=== PATIENT | male | born 1950 | race Two or more races ===

== ENCOUNTER 2018-09-06 15:47 | Inpatient (IN) | payer OTHER, MEDICARE ==
[~2018-09-06] VITALS: Ht 177.8 cm; Wt 112.5 kg
[2018-09-06] MEDS ORDERED: SODIUM CHLORIDE 0.9% 1000ML 1,000 ML IV STA ×2 (16:09→17:53)
[2018-09-06] MEDS ORDERED: VANCOMYCIN 1GM/NS 250 ML 250 ML IV ONE (16:15)
[2018-09-06] MEDS ORDERED: PIPER-TAZ 3.375 GM 50 ML IV ONE (16:15)
[2018-09-06 17:00] LABS: BASOPHILS # (AUTO) 0.1 (0.0-0.1); BASOPHILS % 0.4 % (0.0-1.0); EOSINOPHILS # (AUTO) 0.1 (0.0-0.4); EOSINOPHILS % 0.9 % (0.0-6.0); HEMOGLOBIN 11.6 g/dL (14.0-18.0); LYMPHOCYTES # (AUTO) 1.6 (1.0-3.2); LYMPHOCYTES % 11.3 % (18.0-39.1); MEAN CORPUSCULAR HEMOGLOBIN 30.4 pg (28-32); MEAN CORPUSCULAR HGB CONC 34.1 g/dL (31-35); MONOCYTES % 7.2 % (4.4-11.3); NEUTROPHILS # (AUTO) 11.1 (2.1-6.9); NEUTROPHILS % 79.4 % (38.7-80.0); PLATELET COUNT 237 x10e3/uL (140-360); RED BLOOD COUNT 3.82 x10e6/uL (4.3-5.7); RED CELL DISTRIBUTION WIDTH 11.9 % (11.7-14.4)
[2018-09-06 17:13] LABS: INR 1.02; PROTHROMBIN TIME 14.3 seconds (11.9-14.5)
[2018-09-06 17:14] LABS: PARTIAL THROMBOPLASTIN TIME 34.9 seconds (23.8-35.5)
[2018-09-06 17:18] LABS: BILIRUBIN,URINE NEGATIVE (NEGATIVE); CLARITY,URINE SL CLOUDY (CLEAR); COLOR,URINE YELLOW (YELLOW); KETONES,URINE NEGATIVE (NEGATIVE); LEUKOCYTE ESTERASE ,URINE NEGATIVE (NEGATIVE); NITRITE,URINE NEGATIVE (NEGATIVE); PROTEIN,URINE DIPSTICK NEGATIVE (NEGATIVE); URINE UROBILINOGEN 0.2 mg/dL (0.2 - 1)
[2018-09-06 17:22] LABS: BACTERIA,URINE MODERATE /HPF; EPITHELIAL CELLS,URINE FEW /LPF; RBC,URINE 0-5 /HPF (0-5)
[2018-09-06 17:23] LABS: ALANINE AMINOTRANSFERASE 22 IU/L (0-55); ALBUMIN 2.7 g/dL (3.5-5.0); ALBUMIN/GLOBULIN RATIO 0.5 (0.8-2.0); ALKALINE PHOSPHATASE 68 IU/L (40-150); BLOOD UREA NITROGEN 36 mg/dL (7-26); BUN/CREATININE RATIO 26 (6-25); CALCIUM 9.8 mg/dL (8.4-10.2); CARBON DIOXIDE 20 mmol/L (22-29); CHLORIDE 95 mmol/L (98-107); CREATINE KINASE 85 IU/L (30-200); CREATININE, SERUM 1.41 mg/dL (0.72-1.25); EST GLOMERULAR FILTRATION RATE 50 ML/MIN (60-); MAGNESIUM 2.3 MG/DL (1.3-2.1); SODIUM 128 mmol/L (136-145)
[2018-09-06 17:30] LABS: GLUCOSE 502 mg/dL (74-118)
--- NOTE | 2018-09-06 17:41 | Diagnostic Imaging Report ---
EXAM: FOOT RIGHT COMPLETE, AP, lateral and oblique INDICATION: Right foot cellulitis COMPARISON: None FINDINGS: BONES: No acute fractures. No erosions. JOINTS: No malalignment. SOFT TISSUES: Soft tissue swelling of the foot, predominantly the first digit with subcutaneous emphysema. Regional vascular calcifications. IMPRESSION: Soft tissue swelling and subcutaneous emphysema of the first digit consistent with infection. No radiographic evidence of osteomyelitis. MRI is more sensitive to detect osteomyelitis. Signed by: Dr. Didi John M.D. on 09/06/2018 5:37 PM
--- NOTE | 2018-09-06 17:49 | Diagnostic Imaging Report ---
EXAM: CHEST SINGLE (PORTABLE), AP 1 view INDICATION: Right foot infection COMPARISON: None FINDINGS: LINES/TUBES: None LUNGS: No consolidations or edema. PLEURA: No effusions or pneumothorax. HEART AND MEDIASTINUM: Normal size and contour. BONES AND SOFT TISSUES: No acute findings. IMPRESSION: No acute thoracic abnormality. Signed by: Dr. Didi John M.D. on 09/06/2018 5:45 PM
[2018-09-06] MEDS ORDERED: INSULIN REGULAR, HUMAN 100 UNIT/1 ML 3ML VIAL IV ONE (18:00)
[2018-09-06] MEDS: VANCOMYCIN 750MG/NS 150ML IVPB 150 ML IV SCH (19:00)
[2018-09-06] MEDS ORDERED: MORPHINE SULFATE 2 MG/ML SYR IV PRN (19:00)
[2018-09-06] MEDS ORDERED: DEXTROSE 50% SYRINGE 50 ML IV PRN (19:00)
[2018-09-06] MEDS ORDERED: ONDANSETRON HCL INJ 2 MG/ML VIAL IV PRN (19:00)
--- OUTSIDE RECORDS SUMMARY | 2018-09-06 20:09 | XMS REPORT ---
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 Allergies, Adverse Reactions, Alerts This patient has no known allergies or adverse reactions. Medications This patient has no known medications. Results Test Description Test Time Test Comments Text Results Atomic Results Result Comments CHEST SINGLE (PORTABLE) 2018-09-06 17:41:00 [place] [address] Patient Name: BENITO MEJIA MR #: [id number] : 1950 Age/Sex: 68/M Req #: [id number] Adm Physician: Ordered by: JOSE ALFREDO GUERRA MD Report #: [id number] Location: ER Room/Bed: Procedure: [id number] DX/CHEST SINGLE (PORTABLE) Exam Date: 09/06/18 Exam Time: 1714 REPORT STATUS: Signed EXAM: CHEST SINGLE (PORTABLE), AP 1 view INDICATION: Right foot infection COMPARISON: None FINDINGS: LINES/TUBES: None LUNGS: No consolidations or edema. PLEURA: No effusions or pneumothorax. HEART AND MEDIASTINUM: Normal size and contour. BONES AND SOFT TISSUES: No acute findings. IMPRESSION: No acute thoracic abnormality. Signed by: Dr. Osvaldo Carmona M.D. on 09/06/2018 5:45 PM Dictated By: OSVALDO CARMONA MD 44 Transcribed By: ARVIND on 09/06/181744 COPY TO: JOSE ALFREDO GUERRA MD FOOT RIGHT COMPLETE 2018-09-06 17:35:00 [facility] [address] [address] Patient Name: BENITO MEJIA MR #: [id number] : 1950 Age/Sex: 68/M Req #: [id number] Adm Physician: Ordered by: JOSE ALFREDO GUERRA MD Report #: [id number] Location: ER Room/Bed: Procedure: [id number] DX/FOOT RIGHT COMPLETE Exam Date: 09/06/18 Exam Time: 1713 REPORT STATUS: Signed EXAM: FOOT RIGHT COMPLETE, AP, lateral and oblique INDICATION: Right foot cellulitis COMPARISON: None FINDINGS: BONES: No acute fractures. No erosions. JOINTS: No malalignment. SOFT TISSUES: Soft tissue swelling of the foot, predominantly the first digit with subcutaneous emphysema. Regional vascular calcifications. IMPRESSION: Soft tissue swelling and subcutaneous emphysema of the first digit consistent with infection. No radiographic evidence of osteomyelitis. MRI is more sensitive to detect osteomyelitis. Signed by: Dr. Osvaldo Carmona M.D. on 09/06/2018 5:37 PM Dictated By: OSVALDO CARMONA MD 36 Transcribed By: ARVIND on 09/06/181736 COPY TO: JOSE ALFREDO GUERRA MD
[2018-09-06] MEDS ORDERED: INSULIN REGULAR, HUMAN 100 UNIT/1 ML 3ML VIAL SQ ONE (20:15)
[2018-09-06] MEDS: INSULIN LISPRO 100 UNIT/1 ML 3ML VIAL SQ SCH (21:00)
[2018-09-06 21:20] VITALS: BP 157/88
[2018-09-06 21:49] VITALS: BP 157/70
[2018-09-07] VITALS (9 sets, daily range): BP systolic 136–160; BP diastolic 63–82
[2018-09-07] MEDS: SODIUM CHLORIDE 0.9% 1000ML 1,000 ML IV SCH ×2 (03:30→08:55)
[2018-09-07 05:37] LABS: BASOPHILS % 0.3 % (0.0-1.0); EOSINOPHILS # (AUTO) 0.2 (0.0-0.4); EOSINOPHILS % 1.5 % (0.0-6.0); HEMATOCRIT 30.5 % (38.2-49.6); HEMOGLOBIN 10.4 g/dL (14.0-18.0); LYMPHOCYTES # (AUTO) 1.7 (1.0-3.2); LYMPHOCYTES % 14.3 % (18.0-39.1); MEAN CORPUSCULAR HEMOGLOBIN 30.9 pg (28-32); MEAN CORPUSCULAR HGB CONC 34.1 g/dL (31-35); MEAN CORPUSCULAR VOLUME 90.5 fL (81-99); MONOCYTES % 8.3 % (4.4-11.3); NEUTROPHILS # (AUTO) 8.7 (2.1-6.9); NEUTROPHILS % 74.9 % (38.7-80.0); PLATELET COUNT 266 x10e3/uL (140-360); RED BLOOD COUNT 3.37 x10e6/uL (4.3-5.7)
[2018-09-07 05:59] LABS: ALANINE AMINOTRANSFERASE 17 IU/L (0-55); ALBUMIN 2.3 g/dL (3.5-5.0); ALBUMIN/GLOBULIN RATIO 0.5 (0.8-2.0); ALKALINE PHOSPHATASE 56 IU/L (40-150); ANION GAP 15.4 mmol/L (8-16); BLOOD UREA NITROGEN 26 mg/dL (7-26); BUN/CREATININE RATIO 23 (6-25); CALCIUM 9.2 mg/dL (8.4-10.2); CARBON DIOXIDE 20 mmol/L (22-29); CHLORIDE 104 mmol/L (98-107); CREATINE KINASE 50 IU/L (30-200); CREATININE, SERUM 1.15 mg/dL (0.72-1.25); EST GLOMERULAR FILTRATION RATE > 60 ML/MIN (60-); GLUCOSE 302 mg/dL (74-118); POTASSIUM 4.4 mmol/L (3.5-5.1); SODIUM 135 mmol/L (136-145)
[2018-09-07] MEDS: PIPER-TAZ 3.375 GM 50 ML IV SCH ×4 (06:00→18:00)
[2018-09-07 07:32] LABS: LYMPHOCYTES % (MANUAL) 15 % (19-48); MONOCYTES % (MANUAL) 6 % (3.4-9.0); NEUTROPHILS % (MANUAL) 77 % (40-74); PLATELET ESTIMATE ADEQUATE; PLATELET MORPHOLOGY COMMENT NORMAL; RBC MORPHOLOGY COMMENT NORMAL
[2018-09-07] MEDS: INSULIN LISPRO 100 UNIT/1 ML 3ML VIAL SQ SCH ×4 (08:10→21:00)
[2018-09-07] MEDS: VANCOMYCIN 750MG/NS 150ML IVPB 150 ML IV SCH ×2 (08:55→19:00)
[2018-09-07] MEDS ORDERED: DIOVAN160 MG PO (12:02)
[2018-09-07] MEDS ORDERED: METFORMIN HCL500 MG PO (12:02)
[2018-09-07] MEDS ORDERED: AMLODIPINE BESY10 MG PO (12:02)
[2018-09-07] MEDS ORDERED: JANUVIA100 MG PO (12:02)
[2018-09-07] MEDS ORDERED: METOPROLOL SUCC50 MG PO (12:02)
[2018-09-07 13:34] LABS: CREATINE KINASE 50 IU/L (30-200)
[2018-09-07] MEDS: METOPROLOL SUCCINATE 50 MG TAB XL PO SCH (15:25)
[2018-09-07] MEDS: VALSARTAN 160 MG TAB PO SCH (15:25)
[2018-09-07] MEDS: ENOXAPARIN SOD INJ 40 MG/0.4 ML SYR SC SCH (16:38)
[2018-09-07] MEDS: INSULIN DETEMIR 100 UNIT/ML PEN SQ SCH (16:47)
--- NOTE | 2018-09-07 18:20 | Consultation ---
DATE OF CONSULTATION: REASON FOR CONSULTATION: Infection of his foot. HISTORY OF PRESENT ILLNESS: This patient who is a very pleasant 68-year-old gentleman with history of obesity, history of diabetes mellitus, history of hypertension. While in the shower, he hit his foot few days ago, but he noticed this was getting progressively worse. There is redness and swelling. The big toe is gangrenous. The patient has noticed there was bad odor to the foot, so he came to the emergency room where he was admitted. The patient told me that when he hit his right foot, he was in the shower and there was water. PAST MEDICAL HISTORY: Hypertension, diabetes mellitus, and obesity. PAST SURGICAL HISTORY: Denies. ALLERGIES: NKA. SOCIAL HISTORY: There is no smoking, drug abuse, or alcohol abuse. FAMILY HISTORY: Hypertension and diabetes. REVIEW OF SYSTEMS HEENT: There is no headache, visual changes, or hearing changes. GI: There is no nausea, no vomiting, no diarrhea. CARDIAC: There is no arrhythmia or chest pain. NEURO: No seizure activity or local weakness, but he does have tingling sensation on both feet. He does not have good sensation. PHYSICAL EXAMINATION GENERAL: Currently alert, oriented. Does not seem to be in acute distress. VITALS: Stable, currently afebrile. HEENT: He does not appear icteric. NECK: Supple. CHEST: Clear. HEART: S1 and S2. No murmur. ABDOMEN: Soft, obese. EXTREMITIES: The right foot, there is erythema, there is edema, and there is gangrene changes of the big toe. I could not feel the pulse distally. An x-ray showed soft tissue swelling and subcutaneous emphysema of the 1st digit consistent with infection. IMPRESSION 1. Gangrene of the 1st toe. 2. Osteomyelitis. 3. Diabetes. 4. Obesity. 5. Hypertension. 6. Chronic kidney disease. We will put the patient on vancomycin 1 gram q.12, Zosyn 325 q.6. Obtain sed rate, C-reactive protein. Patient will need vascular workup probably end up with amputation of his toe. This was discussed with the patient who will follow with you. Job#: [id number] VAS
--- NOTE | 2018-09-07 18:40 | Consultation ---
DATE OF CONSULTATION: September 07, 2018 CARDIOLOGY CONSULTATION REFERRING PHYSICIAN: Dr. Abhishek Barton. REASON FOR CONSULTATION: Foot gangrene. HISTORY OF PRESENT ILLNESS: Mr. Lara is a 68-year-old man with history of diabetes mellitus, hypertension, dyslipidemia, morbid obesity, who presents to [facility] via the emergency department with complaint of worsening pain, falls now, and discoloration of wound to the right toe. He sustained a trauma to the foot over the last week and the last 3 days hit his foot again after which he noticed erythema, pain, discoloration, and skin sloughing significantly increased. He also described subjective fevers. He denies any chest pain or shortness of breath. He denies any prior known coronary or vascular problems. Antibiotics were initiated in the emergency department. We have been asked to evaluate from a cardiovascular standpoint. REVIEW OF SYSTEMS: A 12-system review negative except for as noted above. ALLERGIES: NO KNOWN DRUG ALLERGIES. PAST MEDICAL HISTORY: Significant for hypertension, diabetes mellitus, dyslipidemia. SOCIAL HISTORY: Denies smoking, alcohol, or drugs. FAMILY HISTORY: Noncontributory. PHYSICAL EXAMINATION VITAL SIGNS: Temperature 98.3, heart rate 84, respiratory rate 20, blood pressure 160/76, O2 sat 97% on room air. GENERAL: No acute distress. Alert. NECK: No JVD. CHEST: Clear to auscultation. CARDIOVASCULAR: Regular rate and rhythm. Normal S1 and S2. No S3 or S4. Systolic ejection murmur 1/6. ABDOMEN: Soft, nontender. EXTREMITIES: Edema, 1+ to the left lower extremity, 2+ to the right lower extremity with erythema in the forefoot to the right and gangrenous changes to first toe with loss of skin integrity. Decreased pulses bilaterally pedal and dorsalis pedis. CARDIOVASCULAR MEDICATIONS: Reviewed. Zosyn and vancomycin antibiotics, valsartan 320 mg daily, Lovenox 40 mg subcutaneous daily, amlodipine 10 mg daily, metoprolol succinate 50 mg daily. STUDIES: White blood cells 11.6, down from 14, hemoglobin 10.4, platelets 266. INR 1. Sodium 135, potassium 4.4, chloride 104, bicarbonate 20, BUN 26, creatinine 1.15, glucose 302. Total bilirubin 0.3, AST is 14, ALT is 17, lactic acid is 13.5 within normal reference range. Troponin I negative x3. Albumin 2.3. Right foot x-ray; soft tissue swelling and subcutaneous emphysema in the first digit consistent with infection. No radiographic evidence of osteomyelitis. Chest x-ray; no acute thoracic abnormality. ASSESSMENT 1. Right foot gangrene and cellulitis with emphysematous changes noted on x-ray and on exam. 2. Suspected peripheral artery disease, underlying. 3. Diabetes mellitus. 4. Hypertension. 5. Dyslipidemia. 6. Obesity. RECOMMENDATIONS 1. Agree with IV antibiotics. 2. We will need source control and debridement expedited. Podiatry has been consulted. Defer to podiatry's expertise. 3. Obtain arterial Doppler ultrasound. 4. We will have threshold for proceeding with angiography during this admission depending on patient's progression. 5. Continue current cardiovascular medications including perioperative beta blockers. 6. Obtain echocardiogram. Job#: [id number] SHERRY
[2018-09-08] VITALS (8 sets, daily range): BP systolic 120–159; BP diastolic 59–81
[2018-09-08] MEDS: PIPER-TAZ 3.375 GM 50 ML IV SCH ×4 (06:00→18:04)
[2018-09-08 07:17] LABS: BASOPHILS # (AUTO) 0.1 (0.0-0.1); BASOPHILS % 0.6 % (0.0-1.0); EOSINOPHILS # (AUTO) 0.2 (0.0-0.4); EOSINOPHILS % 1.8 % (0.0-6.0); HEMATOCRIT 32.6 % (38.2-49.6); HEMOGLOBIN 10.9 g/dL (14.0-18.0); LYMPHOCYTES # (AUTO) 1.8 (1.0-3.2); LYMPHOCYTES % 16.2 % (18.0-39.1); MEAN CORPUSCULAR HEMOGLOBIN 30.6 pg (28-32); MEAN CORPUSCULAR HGB CONC 33.4 g/dL (31-35); MEAN CORPUSCULAR VOLUME 91.6 fL (81-99); MONOCYTES # (AUTO) 0.7 (0.2-0.8); MONOCYTES % 6.5 % (4.4-11.3); NEUTROPHILS # (AUTO) 8.3 (2.1-6.9); NEUTROPHILS % 73.9 % (38.7-80.0); PLATELET COUNT 290 x10e3/uL (140-360); RED BLOOD COUNT 3.56 x10e6/uL (4.3-5.7); RED CELL DISTRIBUTION WIDTH 12.4 % (11.7-14.4)
[2018-09-08 07:31] LABS: ANION GAP 15.9 mmol/L (8-16); BLOOD UREA NITROGEN 15 mg/dL (7-26); BUN/CREATININE RATIO 14 (6-25); CALCIUM 9.4 mg/dL (8.4-10.2); CARBON DIOXIDE 21 mmol/L (22-29); CHLORIDE 103 mmol/L (98-107); CREATININE, SERUM 1.05 mg/dL (0.72-1.25); EST GLOMERULAR FILTRATION RATE > 60 ML/MIN (60-); GLUCOSE 280 mg/dL (74-118); POTASSIUM 4.9 mmol/L (3.5-5.1); SODIUM 135 mmol/L (136-145)
[2018-09-08 07:34] LABS: CHOL/HDL RATIO 4.7 (3.9-4.7)
[2018-09-08 07:54] LABS: THYROID STIMULATING HORMONE 1.682 uIU/mL (0.350-4.940)
[2018-09-08] MEDS: INSULIN DETEMIR 100 UNIT/ML PEN SQ SCH ×2 (08:41→18:04)
[2018-09-08] MEDS: INSULIN LISPRO 100 UNIT/1 ML 3ML VIAL SQ SCH ×4 (08:41→21:00)
[2018-09-08] MEDS: VANCOMYCIN 750MG/NS 150ML IVPB 150 ML IV SCH ×2 (08:42→19:45)
[2018-09-08] MEDS: AMLODIPINE BESYLATE 10 MG TAB PO SCH (08:42)
[2018-09-08] MEDS: METOPROLOL SUCCINATE 50 MG TAB XL PO SCH (08:42)
[2018-09-08] MEDS: VALSARTAN 160 MG TAB PO SCH (08:42)
[2018-09-08 11:41] LABS: BAND NEUTROPHILS % (MANUAL) 2 %; EOSINOPHILS % (MANUAL) 1 % (0-7); LYMPHOCYTES % (MANUAL) 20 % (19-48); MONOCYTES % (MANUAL) 2 % (3.4-9.0); NEUTROPHILS % (MANUAL) 75 % (40-74)
[2018-09-08 11:42] LABS: PLATELET ESTIMATE ADEQUATE; PLATELET MORPHOLOGY COMMENT NORMAL; RBC MORPHOLOGY COMMENT NORMAL
[2018-09-08] MEDS ORDERED: FUROSEMIDE INJ 10 MG/ML 4 ML VIAL IV ONE (13:30)
[2018-09-08] MEDS ORDERED: POTASSIUM CHLORIDE 10MEQ EA PO ONE (13:30)
--- NOTE | 2018-09-08 17:34 | Progress Note ---
DATE: September 08, 2018 CARDIOLOGY PROGRESS NOTE SUBJECTIVE: Describes foot discomfort, erythema, and gangrenous changes, stable compared to yesterday. OBJECTIVE VITAL SIGNS: Temperature 97.7, heart rate 75, respiratory rate 20, blood pressure 128/70, O2 sat 97% on room air. GENERAL: In no acute distress, alert. NECK: No JVD. CHEST: Clear to auscultation. CARDIOVASCULAR: Regular rate and rhythm. Normal S1 and S2. No S3 or S4. ABDOMEN: Soft, nontender. EXTREMITIES: Right lower extremity, 2+ edema. Left lower extremity, trace edema. Right foot first toe gangrenous, with erythema in the distal most segment of the forefoot. Decreased pulses, however, warm extremities distally. CARDIOVASCULAR MEDICATIONS: Reviewed. On Zosyn, vancomycin, valsartan 320 mg daily, amlodipine 10 mg daily, metoprolol succinate 50 mg daily, Lovenox 40 mg subcu daily. STUDIES: White blood cells 11.2, hemoglobin 10.9, platelets 290, sodium 135, potassium 4.9, chloride 103, bicarbonate 21, BUN 15, creatinine 1.05, glucose 280, calcium 9.1, hemoglobin A1c was 10.9 and elevated, LDL was 83, HDL 27, triglycerides 92, total cholesterol 128, TSH 1.6. ASSESSMENT 1. Gangrene of first toe with associated osteomyelitis and cellulitis. Given air on x-ray concerning for anaerobic infection, infectious disease on board. 2. Uncontrolled diabetes. 3. Hypertension. 4. Dyslipidemia. 5. Obesity. 6. Chronic kidney disease. 7. Peripheral arterial disease, suspected by Doppler. RECOMMENDATIONS 1. Antibiotics per ID. 2. Source control per podiatry. Plan for MRI and possible surgery soon. 3. Arterial Doppler reviewed, concerning for right popliteal and [id number] vessel multilevel peripheral arterial disease. I have discussed alternatives, indications, risk, and benefits from angiography and possible endovascular intervention with patient. He was agreeable to this procedure. We will plan on this following his foot surgery by podiatry. We will coordinate care with other treating physicians. 4. Continue perioperative beta blockers. 5. Preserved left ventricular systolic function noted on echocardiogram. Job#: [id number] LPA
[2018-09-08] MEDS: SODIUM CHLORIDE 0.9% 1000ML 1,000 ML IV SCH (18:03)
[2018-09-08] MEDS: ASPIRIN 81 MG CHEW TAB PO SCH (18:03)
[2018-09-08] MEDS: ENOXAPARIN SOD INJ 40 MG/0.4 ML SYR SC SCH (18:04)
[2018-09-08] MEDS: TAMSULOSIN HCL 0.4 MG CAP PO SCH (21:00)
[2018-09-08] MEDS: ATORVASTATIN 40 MG TAB PO SCH (21:00)
[2018-09-09] VITALS (9 sets, daily range): BP systolic 138–161; BP diastolic 70–89
[2018-09-09] MEDS: SODIUM CHLORIDE 0.9% 1000ML 1,000 ML IV SCH ×3 (00:34→20:16)
--- NOTE | 2018-09-09 05:08 | Consultation ---
DATE OF CONSULTATION: September 08, [address] Abraham Peace. REASON FOR CONSULTATION: Gangrene and abscess of the right foot. 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 He came to the emergency room because he says he hit his toe about 4 days ago. Once he hit his toe, he noticed that he started developing a wound. He came into the ER because all of a sudden his foot was red hot and swollen. He is a diabetic who manages his diabetes with glipizide, metformin and now he has begun on Lantus. He says he sees a doctor in the [facility]. He does not recall his name, but he says he is compliant, but he does need to improve on the hemoglobin A1c. He does not remember what the number is. PAST MEDICAL HISTORY: Diabetes mellitus, hypertension, PVD. ALLERGIES: NO KNOWN DRUG ALLERGIES. 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 He denies any alcohol, tobacco or illicit drug use. He lives at home with his . He has children, grandchildren and great grandchildren. REVIEW OF SYSTEMS: Noncontributory except for abscess to the right foot. LOWER EXTREMITY PHYSICAL EXAMINATION: Pedal pulses are palpable. Capillary filling time is delayed. There is +2 erythema to the lower extremity that extends to about the mid foot. There is malodor. There is some ulcer down to the bone to the right hallux. There are white gangrenous changes. Skin is thin, shiny and atrophic. Intrinsic minus type of foot. There is no pedal hair growth noted. Protective threshold is absent. LABORATORY DATA: His white blood cell count right now is trending down from 14 when he came in on September 06 here down to 11.23. His hemoglobin is 10.9, hematocrit 32.6. His neutrophils are 73.9. They are also trending down along with monocytes. His blood culture is negative for 24 hours. The x-ray still show for some changes of an abscess to the right lower extremity. He has pending a stat MRI. His urine cultures were negative. ASSESSMENT 1. Ulcer grade 3, left. 2. 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 3. Abscess osteomyelitis, right. PLAN: At this point, I discussed with the patient that he is going to need a debridement in the OR. He is aware of the possibility that he is going to lose the 1st ray. At this point, he is going to do Betadine, wet to dry. I ordered a stat MRI. Dr. Peace will follow for surgical debridement and continued care of this patient. I discussed with him the need for compliance for continued diabetic compliance with his blood sugars. I have answered all questions. We will continue to follow. Thank you for letting us participate in the care of this patient. Job#: [id number] GE
[2018-09-09] MEDS: PIPER-TAZ 3.375 GM 50 ML IV SCH ×4 (05:25→18:00)
[2018-09-09 05:43] LABS: BASOPHILS # (AUTO) 0.1 (0.0-0.1); BASOPHILS % 0.7 % (0.0-1.0); EOSINOPHILS # (AUTO) 0.3 (0.0-0.4); EOSINOPHILS % 2.7 % (0.0-6.0); HEMATOCRIT 31.8 % (38.2-49.6); HEMOGLOBIN 10.6 g/dL (14.0-18.0); LYMPHOCYTES # (AUTO) 2.1 (1.0-3.2); LYMPHOCYTES % 21.3 % (18.0-39.1); MEAN CORPUSCULAR HEMOGLOBIN 30.4 pg (28-32); MEAN CORPUSCULAR HGB CONC 33.3 g/dL (31-35); MEAN CORPUSCULAR VOLUME 91.1 fL (81-99); MONOCYTES # (AUTO) 0.7 (0.2-0.8); MONOCYTES % 6.7 % (4.4-11.3); NEUTROPHILS # (AUTO) 6.7 (2.1-6.9); NEUTROPHILS % 67.8 % (38.7-80.0); PLATELET COUNT 310 x10e3/uL (140-360); RED BLOOD COUNT 3.49 x10e6/uL (4.3-5.7); RED CELL DISTRIBUTION WIDTH 12.3 % (11.7-14.4)
[2018-09-09 05:56] LABS: ANION GAP 13.1 mmol/L (8-16); BLOOD UREA NITROGEN 12 mg/dL (7-26); BUN/CREATININE RATIO 13 (6-25); CALCIUM 9.4 mg/dL (8.4-10.2); CARBON DIOXIDE 24 mmol/L (22-29); CHLORIDE 104 mmol/L (98-107); CREATININE, SERUM 0.93 mg/dL (0.72-1.25); EST GLOMERULAR FILTRATION RATE > 60 ML/MIN (60-); GLUCOSE 188 mg/dL (74-118); POTASSIUM 4.1 mmol/L (3.5-5.1); SODIUM 137 mmol/L (136-145)
[2018-09-09] MEDS: VANCOMYCIN 750MG/NS 150ML IVPB 150 ML IV SCH ×2 (06:19→18:41)
[2018-09-09] MEDS: INSULIN LISPRO 100 UNIT/1 ML 3ML VIAL SQ SCH ×4 (07:30→20:17)
[2018-09-09] MEDS: INSULIN DETEMIR 100 UNIT/ML PEN SQ SCH ×2 (07:30→18:00)
[2018-09-09 09:04] LABS: PLATELET ESTIMATE ADEQUATE; PLATELET MORPHOLOGY COMMENT NORMAL; RBC MORPHOLOGY COMMENT NORMAL
[2018-09-09] MEDS: VALSARTAN 160 MG TAB PO SCH (10:52)
[2018-09-09] MEDS: ASPIRIN 81 MG CHEW TAB PO SCH (10:52)
[2018-09-09] MEDS: METOPROLOL SUCCINATE 50 MG TAB XL PO SCH (10:53)
[2018-09-09] MEDS: AMLODIPINE BESYLATE 10 MG TAB PO SCH (10:53)
--- NOTE | 2018-09-09 10:57 | Diagnostic Imaging Report ---
TECHNIQUE: Magnetic resonance imaging of the RIGHT foot (forefoot) was performed WITHOUT injected contrast. HISTORY: Infection, abscess, osteomyelitis, ulcer COMPARISON: Right foot radiographs September 06, 2018. DISCUSSION: Bone: Heterogeneous signal throughout the majority of the first proximal and distal phalanges, with innumerable small foci of signal void. Paucity of associated edema. Joints: Mild scattered degenerative changes, most notably the first metatarsophalangeal joint. Fluid within the visualized joints is within physiologic limits. Soft Tissues: Mild edema of the great toe with innumerable small foci of signal void. Moderate superficial dorsal soft tissue edema of the visualized foot. IMPRESSION: 1. Innumerable air foci throughout the soft tissues and bones of the great toe with a relative paucity of associated edema, consider gangrene. 2. No soft tissue abscess. Signed by: Dr. Maco Damon D.O., M.M.M. on 09/09/2018 10:54 AM
--- NOTE | 2018-09-09 12:35 | Progress Note ---
DATE: September 09, 2018 CARDIOLOGY PROGRESS NOTE SUBJECTIVE: No complaints today other than foot discomfort. OBJECTIVE VITAL SIGNS: Temperature 97.5, heart rate 70, respiratory rate 20, blood pressure 144/70, O2 sat 99%. GENERAL: In no acute distress. Alert. NECK: No JVD. CHEST: Clear to auscultation. CARDIOVASCULAR: Regular rate and rhythm. Normal S1 and S2. No S3 or S4. ABDOMEN: Soft. EXTREMITIES: 2+ edema to right lower extremity and trace edema to left lower extremity. Right 1st toe gangrene and improving erythema surrounding the forefoot. Decreased pulses. Warm distal extremities. CARDIOVASCULAR MEDICATIONS: Reviewed. 1. Enoxaparin 40 mg daily. 2. Amlodipine 10 mg daily. 3. Valsartan 320 mg daily. 4. Tamsulosin 0.4 mg nightly. 5. Metoprolol succinate 50 mg daily. 6. Aspirin 81 mg daily. 7. Atorvastatin 40 mg nightly. STUDIES: Reviewed. Creatinine 0.9. Hemoglobin 10.6, platelets 310. Normal transaminases. ASSESSMENT 1. Right 1st toe gangrene and cellulitis/osteomyelitis with abscess. 2. Abnormal Dopplers concerning for peripheral arterial disease/critical limb ischemia of the right lower extremity. 3. Diabetes mellitus. 4. Dyslipidemia. 5. Hypertension. 6. Morbid obesity. 7. Anemia. RECOMMENDATIONS 1. Patient is scheduled for surgical debridement and likely 1st toe amputation tomorrow a.m. Discussed the case with Podiatry. Will follow with angiography after surgical source control. Continue antibiotics. 2. Continue rest of cardiovascular medications. 3. Overall guarded limb prognosis. Job#: [id number] CARO
[2018-09-09 15:03] LABS: BASOPHILS % 0.4 % (0.0-1.0); EOSINOPHILS # (AUTO) 0.2 (0.0-0.4); EOSINOPHILS % 2.2 % (0.0-6.0); HEMATOCRIT 32.8 % (38.2-49.6); HEMOGLOBIN 10.9 g/dL (14.0-18.0); LYMPHOCYTES # (AUTO) 1.4 (1.0-3.2); LYMPHOCYTES % 15.3 % (18.0-39.1); MEAN CORPUSCULAR HEMOGLOBIN 30.4 pg (28-32); MEAN CORPUSCULAR HGB CONC 33.2 g/dL (31-35); MEAN CORPUSCULAR VOLUME 91.4 fL (81-99); MONOCYTES # (AUTO) 0.6 (0.2-0.8); MONOCYTES % 6.3 % (4.4-11.3); NEUTROPHILS # (AUTO) 6.8 (2.1-6.9); NEUTROPHILS % 74.7 % (38.7-80.0); PLATELET COUNT 310 x10e3/uL (140-360); RED BLOOD COUNT 3.59 x10e6/uL (4.3-5.7); RED CELL DISTRIBUTION WIDTH 12.1 % (11.7-14.4)
[2018-09-09 15:26] LABS: ANION GAP 15.5 mmol/L (8-16); BLOOD UREA NITROGEN 12 mg/dL (7-26); BUN/CREATININE RATIO 11 (6-25); CALCIUM 8.4 mg/dL (8.4-10.2); CARBON DIOXIDE 23 mmol/L (22-29); CHLORIDE 102 mmol/L (98-107); CREATININE, SERUM 1.05 mg/dL (0.72-1.25); EST GLOMERULAR FILTRATION RATE > 60 ML/MIN (60-); GLUCOSE 342 mg/dL (74-118); POTASSIUM 4.5 mmol/L (3.5-5.1); SODIUM 136 mmol/L (136-145)
[2018-09-09] MEDS: ENOXAPARIN SOD INJ 40 MG/0.4 ML SYR SC SCH (17:00)
[2018-09-09 18:25] LABS: INR 1.08
[2018-09-09] MEDS: ATORVASTATIN 40 MG TAB PO SCH (20:16)
[2018-09-09] MEDS: TAMSULOSIN HCL 0.4 MG CAP PO SCH (20:16)
[2018-09-10] VITALS (8 sets, daily range): BP systolic 144–163; BP diastolic 73–86
[2018-09-10] MEDS: PIPER-TAZ 3.375 GM 50 ML IV SCH ×4 (00:02→17:52)
[2018-09-10] MEDS: SODIUM CHLORIDE 0.9% 1000ML 1,000 ML IV SCH ×3 (04:26→21:57)
[2018-09-10] MEDS ORDERED: BUPIVACAINE HCL 0.5% INJ 30 ML VIAL INJ ONE (06:35)
[2018-09-10] MEDS ORDERED: DEXAMETHASONE SOD PHOS INJ 4 MG/ML VIAL ONE ×2 (06:35→18:07)
[2018-09-10] MEDS ORDERED: MUPIROCIN 2% OINT 22 GM TUBE ONE (06:35)
[2018-09-10] MEDS ORDERED: BACITRACIN 50,000 UNIT VIAL ONE (06:35)
[2018-09-10] MEDS ORDERED: BETAMETHASONE DISODIUM PHOS 6 MG/ML VIAL ONE (06:54)
[2018-09-10] MEDS ORDERED: LIDOCAINE HCL 2% LOCAL 20 ML VIAL ONE (06:54)
[2018-09-10] MEDS ORDERED: LIDOCAINE HCL 1% LOCAL INJ 20 ML VIAL ONE (06:55)
[2018-09-10] MEDS: VANCOMYCIN 750MG/NS 150ML IVPB 150 ML IV SCH ×2 (07:00→19:03)
--- NOTE | 2018-09-10 08:06 | Progress Note ---
DATE: September 09, 2018 SUBJECTIVE: Patient seen on his way to getting an angiogram. He is denying any history of fever, chills, nausea or vomiting. OBJECTIVE: Vitals: Afebrile. Pulse rate 70, respirations 20. Blood pressure 149/81. O2 saturation 98%. Labs noted. Has a white blood cell count of 9.8, hemoglobin 10.6, hematocrit 31.8 with a platelet count of 310. Has gangrenous changes noted to the right foot with a grade-4 ulcer with positive foul smell. Some necrosis noted overlying the 1st MPJ. Also has some discomfort overlying the medial aspect of the 1st metatarsophalangeal joint. Pedal pulses are diminished. ASSESSMENT 1. Peripheral artery disease. 2. Abscess, right foot. 3. Grade-4 ulcer with gangrene. PLAN: Patient will be taken for surgical intervention tomorrow. The proposed surgery plus risks and complications were reviewed in great detail. Patient understands no warranties or guarantees can be given. Proposed surgery will be I and D of the right foot, amputation of right great toe, partial resection of first metatarsal with possible rotational flap closure depending on intraoperative findings. Will keep the patient n.p.o. after midnight. CBC and diff will be reordered in the evening. Job#: [id number]
--- NOTE | 2018-09-10 08:46 | Operative Report ---
DATE OF PROCEDURE: September 10, 2018 PREOPERATIVE DIAGNOSES 1. Abscess with grade 4 ulcer, right foot. 2. Gangrene, right great toe with capsulitis around the 1st metatarsophalangeal joint. POSTOPERATIVE DIAGNOSES 1. Abscess with grade 4 ulcer, right foot. 2. Gangrene, right great toe with capsulitis around the 1st metatarsophalangeal joint. OPERATIVE PROCEDURES 1. Incision and drainage of abscess deep down to bone. 2. Amputation of right great toe. 3. Partial resection of 1st metatarsal, right foot. 4. Rotational flap closure, right foot. 5. Intraoperative use of fluoroscopy. ANESTHESIA: General. HEMOSTASIS: Pneumatic thigh tourniquet at 350 mmHg. PROCEDURE IN DETAIL: Patient was taken into the operating room and placed on the operating room table in the supine position. Following induction of general anesthesia by the anesthesiologist, Webril wraps were placed on the patient's right thigh followed by application of right thigh tourniquet. The right lower extremity was then prepped and draped in the usual aseptic manner. The following procedures were then performed: PROCEDURE #1: I and D, right foot. Attention was directed to the distal aspect of the right foot where a curvilinear incision was performed overlying the ulceration site. The incision was deepened down to bone. Abscess was encountered and cultured for aerobic and anaerobic growth. Secondary to the amount of severe necrosis, procedure #2 was performed. PROCEDURE #2: Amputation, right great toe. The toe was then disarticulated at the metatarsophalangeal joint and sent for pathological analysis. Still some foul smell present was noted. Secondary to the necrosis, procedure #3. PROCEDURE #3: Partial resection of the metatarsal head was then performed utilizing an oscillating saw. All rough and bony edges were rasped smooth. PROCEDURE #4: At this point, the thigh tourniquet was then released and all ligators or pumpers were bovied or ligated as necessary. Further debridement of necrosis was removed via sharp and blunt dissection until good viable bleeding tissue was achieved. At this point, secondary to the viability, it was decided to re-perform a rotational flap closure. The incision was then deepened more dorsomedially and plantar laterally to allow for a plantar rotational flap to close with minimal skin tension. The flap was then reapproximated and closed utilizing 2-0 Vicryl and 3-0 nylon for subcutaneous tissue and skin respectively. Part of the flap was left open for any drainage distally. PROCEDURE #5: Intraoperative use of fluoroscopy was then used to make sure no gas in tissue was encountered. Approximately, 10-15 mL of 0.5% plain Marcaine plus 5 mL of Xylocaine plain were then used to achieve local anesthesia to the above-mentioned surgical area. Sterile dressing was applied. Patient was then transferred from the OR to recovery with vital signs stable and neurovascular status intact. Blood loss from the surgery was less than 20 mL. Patient may need further vascular evaluation to get better circulation to his left lower extremity to allow for better healing chances. Patient will remain in the hospital with IV antibiotics and offloading. Patient understands no warranties can be given, and further surgery may be needed if not responsive. Job#: [id number] TAIWO
--- NOTE | 2018-09-10 09:05 | Diagnostic Imaging Report ---
PROCEDURE:X-RAY RIGHT FOOT, TWO VIEWS COMPARISON:None. INDICATIONS:POST-OPERATIVE X-RAYS OR RT. FOOT FINDINGS: See conclusion. CONCLUSION: AP and lateral post-operative views of the right foot show post-surgical changes of right great toe amputation with partial amputation of the distal first metatarsal. There is surrounding soft-tissue swelling consistent with recent surgery. Vascular calcification is present. Degenerative changes of the calcaneus is noted. Devon Gaviria D.O. Dictated by: Devon Gaviria D.O. on 09/10/2018 at 9:14 Electronically approved by: Devon Gaviria D.O. on 09/10/2018 at 9:14
[2018-09-10] MEDS: ASPIRIN 81 MG CHEW TAB PO SCH (10:23)
[2018-09-10] MEDS: INSULIN DETEMIR 100 UNIT/ML PEN SQ SCH ×2 (10:23→17:39)
[2018-09-10] MEDS: INSULIN LISPRO 100 UNIT/1 ML 3ML VIAL SQ SCH ×5 (10:23→20:19)
[2018-09-10] MEDS: AMLODIPINE BESYLATE 10 MG TAB PO SCH (10:25)
[2018-09-10] MEDS: VALSARTAN 160 MG TAB PO SCH (10:25)
[2018-09-10] MEDS: METOPROLOL SUCCINATE 50 MG TAB XL PO SCH (10:25)
--- NOTE | 2018-09-10 14:42 | Progress Note ---
DATE: September 10, 2018 CARDIOLOGY PROGRESS NOTE SUBJECTIVE: No new complaints today. Status post foot debridement. OBJECTIVE VITAL SIGNS: Temperature 97.2, heart rate 71, blood pressure 153/84, respiratory rate 20, O2 sat 99%. GENERAL: In no acute distress. Alert. NECK: No JVD. CHEST: Clear to auscultation. CARDIOVASCULAR: Regular rate and rhythm. Normal S1 and S2. No S3, no S4. ABDOMEN: Soft, nontender. EXTREMITIES: Right lower extremity 1+ edema with dressings in place. Left lower extremity with trace edema. CARDIOVASCULAR MEDICATIONS: Reviewed. 1. Amlodipine 10 mg daily. 2. Lovenox 40 mg subcutaneous daily. 3. Valsartan 320 mg daily. 4. Tamsulosin 0.4 mg nightly. 5. Metoprolol succinate 50 mg daily. 6. Aspirin 81 mg daily. 7. Atorvastatin 40 mg nightly. 8. On vancomycin and Zosyn antibiotics. STUDIES: Reviewed. Creatinine 1.05. Hemoglobin 10.9, platelets 310. INR 1.08. Normal transaminases. ASSESSMENT 1. Right foot abscess and cellulitis/osteomyelitis status post 1st toe amputation and foot debridement, postop day 0. 2. Peripheral arterial disease with critical limb ischemia/foot wound. 3. Diabetes mellitus. 4. Hypertension. 5. Dyslipidemia. 6. Morbid obesity. RECOMMENDATIONS: Discussed extensively alternatives, risks, indications and benefits for angiography and possible percutaneous peripheral intervention. Patient is agreeable and voices understanding. Will schedule for procedure based on mobile lab technician availability, tentatively tomorrow morning if possible. Continue current cardiovascular medications. Job#: [id number] CARO
[2018-09-10] MEDS ORDERED: HYDROCODONE/APAP 7.5MG-325MG 1 EA TAB PO PRN (14:45)
--- NOTE | 2018-09-10 15:20 | Consultation ---
DATE OF CONSULTATION: September 10, 2018 ENDOCRINE CONSULTATION This is a patient of Dr. Barton. Thank you very much for referring this patient. HISTORY OF PRESENT ILLNESS: This is a 68-year-old white gentleman who is referred to me for evaluation of uncontrolled diabetes mellitus. Patient tells me that he is a known diabetic for almost 10-plus years and takes oral hypoglycemics at home. Recently he was started on insulin Lantus. He came to the hospital because of the right toe gangrene and cellulitis of the right foot. Patient also has history of hypertension, peripheral vascular disease. At the time of admission, his blood sugar was 502 and his anion gap was around 18. His hemoglobin A1c was 10.5. His other routine medications include amlodipine, valsartan. He has also a history of BHP for which he is on Flomax, and he also has history of hyperlipidemia for which he is on Lipitor. PHYSICAL EXAMINATION: GENERAL: Today the patient is alert, awake, a little bit apprehensive. He is moderately overweight. VITAL SIGNS: His heart rate is around 78. Blood pressure 146/86 mmHg. HEENT: Examination essentially unremarkable. Thyroid is palpable. Clinically he is near euthyroid. CHEST: Bilateral vesicular breathing. He has mild bronchospasm. CARDIAC: Both 1st and 2nd heart sounds. There is no 3rd or 4th heart sound. Ejection sound grade 2/6. ABDOMEN: Patient has slightly distended abdomen. 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 He has cellulitis of the right foot with gangrene of the toe. CLINICAL IMPRESSION: 1. Diabetes mellitus, type 2, uncontrolled with complications. 2. Cellulitis of the right foot with gangrene of the toe. 3. Hypertension. 4. Hyperlipidemia. 5. Obesity. The plan at this time is to do a hemoglobin A1c, thyroid function test. Monitor his blood sugar. Put him on the Humalog and the Lantus combination. Thanks for referring this patient. I will be following this patient with you. Job#: [id number] CARO
[2018-09-10 17:27] LABS: FREE T4 (FREE THYROXINE) 1.05 ng/dL (0.9-1.8); THYROID STIMULATING HORMONE 1.606 uIU/mL (0.350-4.940)
[2018-09-10] MEDS: ENOXAPARIN SOD INJ 40 MG/0.4 ML SYR SC SCH (17:52)
[2018-09-10] MEDS ORDERED: LIDOCAINE HCL 2% LOCAL INJ 5 ML SDV VIAL INJ ONE (18:07)
[2018-09-10] MEDS ORDERED: PROPOFOL IV EMULSION 10 MG/ML 20 ML VIAL ONE (18:07)
[2018-09-10] MEDS ORDERED: SEVOFLURANE INHAL SOLN 250 ML PEN BTL ONE (18:07)
[2018-09-10] MEDS ORDERED: ONDANSETRON HCL INJ 2 MG/ML VIAL ONE (18:07)
[2018-09-10] MEDS ORDERED: FENTANYL CITRATE/PF 100MCG/2 ML INJ ONE (18:16)
[2018-09-10] MEDS: ATORVASTATIN 40 MG TAB PO SCH (20:19)
[2018-09-10] MEDS: TAMSULOSIN HCL 0.4 MG CAP PO SCH (20:19)
[2018-09-11] VITALS (16 sets, daily range): BP systolic 136–169; BP diastolic 70–98
[2018-09-11] MEDS: PIPER-TAZ 3.375 GM 50 ML IV SCH ×4 (00:08→16:47)
[2018-09-11 05:05] LABS: HEMATOCRIT 30.4 % (38.2-49.6); HEMOGLOBIN 10.2 g/dL (14.0-18.0); MEAN CORPUSCULAR HEMOGLOBIN 30.6 pg (28-32); MEAN CORPUSCULAR HGB CONC 33.6 g/dL (31-35); MEAN CORPUSCULAR VOLUME 91.3 fL (81-99); PLATELET COUNT 304 x10e3/uL (140-360); RED BLOOD COUNT 3.33 x10e6/uL (4.3-5.7); RED CELL DISTRIBUTION WIDTH 12.1 % (11.7-14.4)
[2018-09-11 05:35] LABS: ANION GAP 14.8 mmol/L (8-16); BLOOD UREA NITROGEN 7 mg/dL (7-26); BUN/CREATININE RATIO 8 (6-25); CALCIUM 8.3 mg/dL (8.4-10.2); CARBON DIOXIDE 21 mmol/L (22-29); CHLORIDE 104 mmol/L (98-107); CREATININE, SERUM 0.87 mg/dL (0.72-1.25); EST GLOMERULAR FILTRATION RATE > 60 ML/MIN (60-); GLUCOSE 101 mg/dL (74-118); POTASSIUM 3.8 mmol/L (3.5-5.1); SODIUM 136 mmol/L (136-145)
[2018-09-11] MEDS: INSULIN DETEMIR 100 UNIT/ML PEN SQ SCH ×2 (07:30→16:46)
[2018-09-11] MEDS: INSULIN LISPRO 100 UNIT/1 ML 3ML VIAL SQ SCH ×7 (07:30→21:00)
[2018-09-11] MEDS: ASPIRIN 81 MG CHEW TAB PO SCH (08:33)
[2018-09-11] MEDS: VALSARTAN 160 MG TAB PO SCH (08:33)
[2018-09-11] MEDS: METOPROLOL SUCCINATE 50 MG TAB XL PO SCH (08:33)
[2018-09-11] MEDS: AMLODIPINE BESYLATE 10 MG TAB PO SCH (08:33)
[2018-09-11] MEDS ORDERED: LIDOCAINE HCL 2% LOCAL 20 ML VIAL ONE (09:12)
[2018-09-11] MEDS ORDERED: IOPAMIDOL 300MG/ML 100 ML INFUS..BTL IV ONE (09:12)
[2018-09-11] MEDS ORDERED: HEPARIN SOD/SOD CHLORIDE 2,000 ML ONE (09:12)
[2018-09-11] MEDS ORDERED: FENTANYL CITRATE/PF 100MCG/2 ML INJ ONE (09:26)
[2018-09-11] MEDS ORDERED: MIDAZOLAM HCL 2 MG/2 ML VIAL ONE (09:26)
[2018-09-11] MEDS ORDERED: HEPARIN SOD (PORCINE) 1000 UNIT/ML 30ML ONE (09:26)
[2018-09-11] MEDS ORDERED: SODIUM CHLORIDE 0.9% 1000ML 1,000 ML ONE ×2 (09:27→10:07)
[2018-09-11] MEDS ORDERED: NITROGLYCERIN/D5W 200 MCG/ML 250 ML ONE (09:27)
--- NOTE | 2018-09-11 09:39 | Progress Note ---
DATE: September 11, 2018 SUBJECTIVE: Patient is doing better. Denies history of fever, chills, nausea, or vomiting. OBJECTIVE VITAL SIGNS: Afebrile. Vital signs stable. EXTREMITIES: Dressing dry and intact to the right foot. Did bleed yesterday after walking on it against medical advice when going to the bathroom. ASSESSMENT: Status post right foot surgery, multiple procedures, including rotational flap closure. PLAN: Patient will be having an angiogram on this date to see if he got more circulation to his foot. Will need at least 2-4 more weeks of IV antibiotics and local wound care. Will try to salvage the foot and prevent any further proximal amputations. Job#: [id number] TAIWO
[2018-09-11] MEDS ORDERED: VERAPAMIL HCL 2.5 MG/ML 2 ML VIAL ONE (10:07)
[2018-09-11] MEDS ORDERED: HYDRALAZINE HCL 20 MG/ML VIAL ONE (10:28)
[2018-09-11] MEDS ORDERED: CLOPIDOGREL BISULFATE 75 MG TAB ONE (10:39)
[2018-09-11] MEDS ORDERED: ASPIRIN 325 MG TAB ONE (10:40)
[2018-09-11] MEDS: VANCOMYCIN 750MG/NS 150ML IVPB 150 ML IV SCH ×2 (11:08→19:01)
--- NOTE | 2018-09-11 11:44 | Progress Note ---
DATE: September 11, 2018 CARDIOLOGY PROGRESS NOTE SUBJECTIVE: No complaints today. OBJECTIVE VITALS: Temperature 96.9, heart rate 56, respiratory rate 18, blood pressure 157/84, O2 sat 97% on room air. GENERAL: In no acute distress. Alert. NECK: No JVD. CHEST: Clear to auscultation. CARDIOVASCULAR: Regular rate and rhythm. Normal S1 and S2. No S3, no S4. No murmurs or rubs. ABDOMEN: Soft, nontender, nondistended. EXTREMITIES: Edema 1+ to right lower extremity. The foot wound is covered with dressings. CARDIOVASCULAR MEDICATIONS: Reviewed. 1. Aspirin 81 mg daily. 2. Valsartan 320 mg daily. 3. Amlodipine 10 mg daily. 4. Metoprolol succinate 50 mg daily. 5. Atorvastatin 40 mg nightly. 6. Zosyn and vancomycin antibiotics. 7. Lovenox 40 mg subcutaneous daily. STUDIES: White blood cells 8.04, hemoglobin 10.2, platelets 304. INR 1.08. Creatinine 0.8. Sodium 136, potassium 3.8, bicarbonate 21, glucose 101, calcium 8.3. Blood culture negative growth at 72 hours. ASSESSMENT 1. Right foot wound abscess, status post right foot surgery. Multiple procedures including rotational flap closure. 2. Peripheral arterial disease status post right anterior tibial CSI atherectomy and percutaneous transluminal angioplasty done 09/11/2018. 3. Dyslipidemia. 4. Hypertension. 5. Morbid obesity. 6. Diabetes mellitus. RECOMMENDATIONS 1. Aspirin 81 mg daily. 2. Clopidogrel 75 mg daily for at least 6 months. 3. Aggressive risk factor optimization. Optimize antihypertensive medications today. 4. Bed rest post left common femoral artery Angio-Seal closure. Job#: [id number]
--- NOTE | 2018-09-11 13:20 | Operative Report ---
DATE OF PROCEDURE: September 11, 2018 PROCEDURE INDICATIONS: Critical limb ischemia with abscess and gangrene of right 1st toe and forefoot cellulitis in a patient with abnormal Doppler suggesting [id number] multilevel PAD. History of diabetes, hypertension, and dyslipidemia. PROCEDURES PERFORMED 1. Abdominal aortogram. 2. Selective lower extremity angiography, bilateral. 3. Third-order catheter placement from left common femoral artery to the right common femoral artery. 4. Additional 3rd-order catheter placement from left common femoral artery to right popliteal artery. 5. Additional selective angiography due to distal poorly visualized vessels. 6. Additional 3rd-order catheter placement from left common femoral artery to right anterior tibial artery. 7. Right anterior tibial artery CSI atherectomy using a 1.25 microbur passed at 60,000 and then 90,000 rpm. 8. Right anterior tibial percutaneous transluminal angioplasty. 9. Left common femoral artery 6-Cuban Angio-Seal closure. PROCEDURE COMPLICATIONS: None. ESTIMATED BLOOD LOSS: Less than 15 mL. PROCEDURE SUMMARY: After consent was obtained, the patient was prepped and draped in a sterile fashion. The left femoral site was locally infiltrated with 2% lidocaine. Access was obtained with micropuncture, and an Omni Flush catheter was positioned into the distal descending abdominal aorta after initial 6-Cuban sheath placement to the left common femoral artery. Abdominal aortogram was performed with digital subtraction. Following this, selective sheath placement to the right common femoral artery position with an up-and-over sheath of 6 Cuban diameter was performed, and selective angiography to the right lower extremity was performed. At the end of the procedure, this sheath was moved back, and selective angiography to the left lower extremity was then performed. Additional angiographic assessment was performed with catheter positioned in the right popliteal and right anterior tibial artery. The following findings were observed: Luminal irregularities were noted throughout the bilateral renal arteries, infrarenal aorta, iliac vessels, femoral and popliteal vessels. There was 3-vessel runoff to each of bilateral lower extremities. However, in the right lower extremity, there was a mid calcific 90% stenosis of the right anterior tibial artery. This was treated with final angiography less than 10% residual stenosis. Preintervention KEI 3. Post intervention KEI 3. Post intervention, no dissections or perforations. Excellent angiographic results. The left anterior tibial artery below the lower half is not well visualized but seems to have areas of 70% stenosis. The peroneal and posterior tibial arteries are not well visualized in the lower half on the left lower extremity. Intervention of right anterior tibial artery: A CSI atherectomy was performed at 60,000 rpm and then 90,000 rpm. TRACTOR SWEEPER OPERATOR was performed with 3.0 x 100 Ultraverse balloon to 6 atmospheres with excellent final angiographic results. At the end of the procedure, the left common femoral artery 6-Cuban Angio-Seal closure was deployed. CONCLUSIONS: Right anterior tibial CSI atherectomy and TRACTOR SWEEPER OPERATOR with excellent final angiographic results, 3-vessel runoff to the right foot with residual disease to the hjulr-[id number] level left lower extremity vessels, however not optimally visualized. RECOMMENDATIONS 1. Aspirin and Plavix. 2. Bed rest. 1. IV fluids. 2. Intensive risk factor optimization. Job#: [id number]
--- NOTE | 2018-09-11 15:57 | Diagnostic Imaging Report ---
Examination: Single AP view of the chest. COMPARISON: November 06, 2017 INDICATION: Line placement DISCUSSION: Lines/tubes: Right PICC line with tip overlying the cavoatrial junction. Lungs: The lungs are well inflated and clear. No pneumonia or pulmonary edema. Pleura: No pleural effusion or pneumothorax. Heart and mediastinum: The heart is enlarged. Bones and soft tissues: No acute bony abnormalities. IMPRESSION: Right PICC line placement with tip overlying the cavoatrial junction. Signed by: Dr. Giovanni Tran M.D. on 09/11/2018 3:54 PM
[2018-09-11] MEDS: SODIUM CHLORIDE 0.9% 1000ML 1,000 ML IV SCH ×2 (16:46→20:54)
[2018-09-11] MEDS: ENOXAPARIN SOD INJ 40 MG/0.4 ML SYR SC SCH (16:47)
[2018-09-11] MEDS: TAMSULOSIN HCL 0.4 MG CAP PO SCH (21:29)
[2018-09-11] MEDS: ATORVASTATIN 40 MG TAB PO SCH (21:29)
[2018-09-12] VITALS (8 sets, daily range): BP systolic 133–154; BP diastolic 66–95
[2018-09-12] MEDS: PIPER-TAZ 3.375 GM 50 ML IV SCH ×4 (06:00→17:08)
[2018-09-12] MEDS: VANCOMYCIN 750MG/NS 150ML IVPB 150 ML IV SCH ×2 (06:53→18:43)
[2018-09-12] MEDS: SODIUM CHLORIDE 0.9% 1000ML 1,000 ML IV SCH ×2 (06:53→18:43)
[2018-09-12] MEDS: INSULIN LISPRO 100 UNIT/1 ML 3ML VIAL SQ SCH ×7 (07:30→20:49)
--- NOTE | 2018-09-12 08:51 | Progress Note ---
DATE: September 12, 2018 SUBJECTIVE: Patient at bedside doing somewhat better. Denying any history of fever, chills, nausea, or vomiting. OBJECTIVE: Vitals: Afebrile. Pulse rate 64, respirations 16, blood pressure 133/66, O2 saturation 98%. CFT to the 2nd through 5th digits of the right foot is less than 4 seconds. Skin temperature warm to touch. Positive edema noted. ASSESSMENT: Status post incision and drainage with rotational flap closure with osteomyelitis and gangrene. PLAN: Will continue IV antibiotics. The patient will need IV antibiotics for next 3 to 4 weeks. Patient may be transferred to [facility]. Will continue offloading. Continue IV antibiotics. Job#: [id number]
[2018-09-12] MEDS: VALSARTAN 160 MG TAB PO SCH (09:05)
[2018-09-12] MEDS: ASPIRIN 81 MG CHEW TAB PO SCH (09:05)
[2018-09-12] MEDS: CLOPIDOGREL BISULFATE 75 MG TAB PO SCH (09:05)
[2018-09-12] MEDS: INSULIN DETEMIR 100 UNIT/ML PEN SQ SCH ×2 (09:05→17:08)
[2018-09-12] MEDS: AMLODIPINE BESYLATE 10 MG TAB PO SCH (09:05)
[2018-09-12] MEDS: METOPROLOL SUCCINATE 50 MG TAB XL PO SCH (09:06)
[2018-09-12] MEDS: ENOXAPARIN SOD INJ 40 MG/0.4 ML SYR SC SCH (17:08)
--- NOTE | 2018-09-12 17:15 | Progress Note ---
DATE: September 12, 2018 CARDIOLOGY PROGRESS NOTE SUBJECTIVE: Doing well. No complaints today. OBJECTIVE VITALS: Temperature 97.9, heart rate 76, respiratory rate is 20, blood pressure 141/67, O2 sat 98%. GENERAL: In no acute distress. Alert. NECK: No JVD. CHEST: Clear to auscultation. CARDIOVASCULAR: Regular rate and rhythm. Normal S1 and S2. No S3, no S4. ABDOMEN: Soft, nontender. EXTREMITIES: Trace edema to right lower extremity. Right foot covered with dressings. CARDIOVASCULAR MEDICATIONS: Reviewed. 1. Valsartan 320 mg daily. 2. Aspirin 81 mg daily. 3. Vancomycin and Zosyn antibiotics. 4. Atorvastatin 40 mg nightly. 5. Clopidogrel 75 mg daily. 6. Metoprolol succinate 50 mg daily. 7. Lovenox 40 mg subcutaneous daily. 8. Amlodipine 10 mg daily. 9. Tamsulosin 0.4 mg nightly. STUDIES: Reviewed. Potassium 3.8, creatinine 0.8. Hemoglobin 10.2, platelets 304,00. INR 1.08. Normal transaminases. ASSESSMENT 1. Peripheral artery disease, status post [id number] revascularization. 2. Hypertension. 3. Dyslipidemia. 4. Status post right foot wound and gangrene debridement followed by podiatry. 5. Continue antibiotics at the discretion of primary service. 6. Continue aggressive diabetes management. 7. Outpatient followup advised in 4 weeks postdischarge. Job#: [id number]
[2018-09-12] MEDS: ATORVASTATIN 40 MG TAB PO SCH (20:37)
[2018-09-12] MEDS: TAMSULOSIN HCL 0.4 MG CAP PO SCH (20:37)
[2018-09-13] VITALS: BP 140/67
[2018-09-13] MEDS: PIPER-TAZ 3.375 GM 50 ML IV SCH ×4 (00:44→17:06)
[2018-09-13 04:00] VITALS: BP 144/75
[2018-09-13] MEDS: SODIUM CHLORIDE 0.9% 1000ML 1,000 ML IV SCH (05:32)
[2018-09-13] MEDS: VANCOMYCIN 750MG/NS 150ML IVPB 150 ML IV SCH (06:38)
[2018-09-13] MEDS: INSULIN LISPRO 100 UNIT/1 ML 3ML VIAL SQ SCH ×6 (07:30→17:06)
[2018-09-13 09:22] VITALS: BP 145/70
[2018-09-13] MEDS: METOPROLOL SUCCINATE 50 MG TAB XL PO SCH (09:22)
[2018-09-13] MEDS: AMLODIPINE BESYLATE 10 MG TAB PO SCH (09:22)
[2018-09-13] MEDS: ASPIRIN 81 MG CHEW TAB PO SCH (09:22)
[2018-09-13] MEDS: VALSARTAN 160 MG TAB PO SCH (09:22)
[2018-09-13] MEDS: CLOPIDOGREL BISULFATE 75 MG TAB PO SCH (09:22)
[2018-09-13] MEDS: INSULIN DETEMIR 100 UNIT/ML PEN SQ SCH ×2 (09:22→17:06)
[2018-09-13 09:35] VITALS: BP 145/70
[2018-09-13 11:34] VITALS: BP 162/75
--- NOTE | 2018-09-13 14:07 | Progress Note ---
DATE: September 13, 2018 CARDIOLOGY PROGRESS NOTE SUBJECTIVE: No complaints today. OBJECTIVE VITALS: Temperature 97.7, heart rate 70, respiratory rate 18, blood pressure 162/75, O2 sat 99% on room air. GENERAL: In no acute distress. Alert. NECK: No JVD. CHEST: Clear to auscultation. CARDIOVASCULAR: Regular rate and rhythm. Normal S1 and S2. No S3 or S4. Systolic ejection murmur of 1/6. ABDOMEN: Soft and nontender. EXTREMITIES: One plus edema to right lower extremity with right foot wound covered with dressings. Warm distal extremities. CARDIOVASCULAR MEDICATIONS: Reviewed. 1. Clopidogrel 75 mg daily. 2. Aspirin 81 mg daily. 3. Valsartan 320 mg daily. 4. Amlodipine 10 mg daily. 5. Metoprolol succinate 50 mg daily. 6. Atorvastatin 40 mg at bedtime. 7. Tamsulosin 0.4 mg at bedtime. 8. Lovenox 40 mg subcutaneously daily. STUDIES: White blood cells 8.04, hemoglobin 10.2 and platelets 304,000 from September 11, 2018. From today, glucose 216. ASSESSMENT 1. Peripheral arterial disease: Status post right anterior tibial percutaneous transluminal angioplasty and atherectomy. 2. Hypertension. 3. Dyslipidemia. 4. Right foot wound gangrene: Status post debridement. Being followed by podiatry. 5. Diabetes mellitus. 6. Morbid obesity. RECOMMENDATIONS 1. Continue antibiotics. 2. Aspirin and Plavix. 3. Statin. 4. Continue antihypertensives. 5. Outpatient follow up in 4 weeks post discharge. Job#: [id number] SC
[2018-09-13 15:45] VITALS: BP 158/74
[2018-09-13] MEDS: ENOXAPARIN SOD INJ 40 MG/0.4 ML SYR SC SCH (17:06)
== END 2018-09-13 18:37 | disposition home or self-care (01) | DRG 271 ==
LOC: ER 15:47 → ERHOLD 18:46 → MED/SURG3 21:10
PROVIDERS: ADMIT Internal Medicine; ATTEND Internal Medicine
PROC: 0Y6M0Z4 Detachment at Right Foot, Complete 1st Ray, Open Approach (ICD-10-PCS; 2018-09-10)
PROC: 0J9Q0ZZ Drainage of Right Foot Subcutaneous Tissue and Fascia, Open Approach (ICD-10-PCS; 2018-09-10)
PROC: 0HXMXZZ Transfer Right Foot Skin, External Approach (ICD-10-PCS; 2018-09-10)
PROC: 04CP3ZZ Extirpation of Matter from Right Anterior Tibial Artery, Percutaneous Approach (ICD-10-PCS; principal; 2018-09-11)
PROC: 047P3ZZ Dilation of Right Anterior Tibial Artery, Percutaneous Approach (ICD-10-PCS; 2018-09-11)
PROC: B41D1ZZ Fluoroscopy of Aorta and Bilateral Lower Extremity Arteries using Low Osmolar Contrast (ICD-10-PCS; 2018-09-11)
PROC: 02HV33Z Insertion of Infusion Device into Superior Vena Cava, Percutaneous Approach (ICD-10-PCS; 2018-09-11)
DX: E11.52 Type 2 diabetes mellitus with diabetic peripheral angiopathy with gangrene (principal); L97.518 Non-pressure chronic ulcer of other part of right foot with other specified severity; I96 Gangrene, not elsewhere classified; M86.9 Osteomyelitis, unspecified; E11.621 Type 2 diabetes mellitus with foot ulcer; E11.65 Type 2 diabetes mellitus with hyperglycemia; Z79.4 Long term (current) use of insulin; I10 Essential (primary) hypertension; Z68.35 Body mass index [BMI] 35.0-35.9, adult; E66.01 Morbid (severe) obesity due to excess calories; E11.69 Type 2 diabetes mellitus with other specified complication; N40.0 Benign prostatic hyperplasia without lower urinary tract symptoms; B95.62 Methicillin resistant Staphylococcus aureus infection as the cause of diseases classified elsewhere; B95.2 Enterococcus as the cause of diseases classified elsewhere
CPT/HCPCS: 36247; 36415; 36569; 37186; 37229; 71045; 75625; 75716; 80048; 80053; 80061; 80202; 81001; 82550; 82553; 82607; 82948; 83036; 83605; 83735; 84439; 84443; 84484; 85007; 85025; 85027; 85610; 85651; 85730; 87040; 87071; 87075; 87086; 87186; 87205; 88304; 88305; 88311; 93005; 93306; 93925; 96361; 96372; 97139; 99284; C1725; C1769; J0360; J0720; J1100; J1644; J1650; J1940; J2001; J2250; J2405; J2543; J7030; J7799; Q9967

== ENCOUNTER 2020-01-05 15:55 | Emergency (ER) | payer MEDICARE, OTHER ==
[~2020-01-05] VITALS: Ht 177.8 cm; Wt 112.5 kg
[~2020-01-05 15:55] MED LIST: AMLODIPINE BESY10 MG PO; DIOVAN160 MG PO; ETOMIDATE 2 MG/ML 10 ML INJ IV ONE; JANUVIA100 MG PO; METFORMIN HCL500 MG PO; METOPROLOL SUCC50 MG PO; SUCCINYLCHOLINE CHLORIDE 20 MG/ML 10ML VIAL ONE; VECURONIUM BROMIDE FOR INJ 20 MG VIAL ONE; WATER STERILE 10 ML VIAL ONE
[2020-01-05] MEDS ORDERED: CEFEPIME 2 GM/NS 0.9% 100 ML 100 ML IV STA (16:24)
[2020-01-05] MEDS ORDERED: SODIUM CHLORIDE 0.9% 500ML 500 ML IV ONE (16:30)
[2020-01-05] MEDS ORDERED: ALBUTEROL SULF 0.083% NEB SOLN 3 ML NEB NEB STA ×2 (16:35→18:48)
[2020-01-05] MEDS ORDERED: IPRATROPIUM BROMIDE 0.02% 2.5 ML NEB NEB ONE (16:45)
[2020-01-05] MEDS ORDERED: CEFEPIME HCL 2 GM VIAL ONE (16:56)
[2020-01-05] MEDS ORDERED: AZITHROMYCIN 500MG/NS 250 ML 250 ML IV SCH (17:00)
[2020-01-05 17:05] LABS: BASOPHILS % 0.3 % (0.0-1.0); EOSINOPHILS % 0.2 % (0.0-6.0); HEMATOCRIT 32.1 % (38.2-49.6); HEMOGLOBIN 9.6 g/dL (14.0-18.0); LYMPHOCYTES # (AUTO) 0.7 (1.0-3.2); LYMPHOCYTES % 10.6 % (18.0-39.1); MEAN CORPUSCULAR HEMOGLOBIN 29.4 pg (28-32); MEAN CORPUSCULAR HGB CONC 29.9 g/dL (31-35); MEAN CORPUSCULAR VOLUME 98.2 fL (81-99); MONOCYTES # (AUTO) 0.7 (0.2-0.8); MONOCYTES % 11.2 % (4.4-11.3); NEUTROPHILS # (AUTO) 4.8 (2.1-6.9); NEUTROPHILS % 77.2 % (38.7-80.0); PLATELET COUNT 172 x10e3/uL (140-360); RED BLOOD COUNT 3.27 x10e6/uL (4.3-5.7); RED CELL DISTRIBUTION WIDTH 14.5 % (11.7-14.4)
--- NOTE | 2020-01-05 17:12 | Diagnostic Imaging Report ---
EXAMINATION: CHEST SINGLE (PORTABLE) INDICATION: Fever, cough COMPARISON: Chest radiograph 09/06/2018 FINDINGS: LINES/TUBES:EKG leads overlie the chest. LUNGS:The lungs are moderately inflated. There is perihilar fullness and indistinctness of the pulmonary vasculature. Patchy bibasilar airspace opacities partially silhouetting the left hemidiaphragm. PLEURA:Possible trace bilateral pleural effusions. MEDIASTINUM:Cardiomediastinal silhouette is stably enlarged. BONES/SOFT TISSUES:No acute osseous injury. ABDOMEN:No free air under the diaphragm. IMPRESSION: Cardiomegaly and findings most compatible with pulmonary edema. Bibasilar patchy opacities most likely represent subsegmental atelectasis, however given the patient's clinical history of fever and cough, superimposed aspiration or pneumonia could also have this appearance. Possible trace bilateral pleural effusions. Signed by: José Manuel Saavedra MD on 01/05/2020 5:10 PM
[2020-01-05 17:17] LABS: INR 1.27; PROTHROMBIN TIME 16.7 seconds (11.9-14.5)
[2020-01-05 17:18] LABS: PARTIAL THROMBOPLASTIN TIME 36.8 seconds (23.8-35.5)
[2020-01-05 17:59] LABS: ABG PCO2 58 mmHg (41-51); ABG PH 7.18 (7.31-7.41); ABG PO2 54 mmHg (80-105)
[2020-01-05 18:00] LABS: ABG HCO3 22 mmol/L (23-28)
[2020-01-05 18:08] LABS: ALBUMIN 3.9 g/dL (3.5-5.0); ALBUMIN/GLOBULIN RATIO 0.9 (0.8-2.0); ANION GAP 11.2 mmol/L (8-16); CREATININE, SERUM 2.29 mg/dL (0.72-1.25)
[2020-01-05 18:24] LABS: POTASSIUM 6.2 mmol/L (3.5-5.1)
[2020-01-05] MEDS ORDERED: PROPOFOL IV EMULSION 10 MG/ML 20 ML VIAL ONE (18:46)
[2020-01-05] MEDS ORDERED: PROPOFOL IV EMULSION 10MG/ML 100 ML ONE ×2 (18:47→23:11)
[2020-01-05] MEDS ORDERED: SODIUM BICARBONATE 8.4% INJ 50 ML SYR IV STA ×2 (18:48→19:25)
[2020-01-05] MEDS ORDERED: DEXTROSE 50% SYRINGE 50 ML IV STA (18:48)
--- NOTE | 2020-01-05 18:48 | Diagnostic Imaging Report ---
EXAMINATION: CHEST SINGLE (PORTABLE) COMPARISON: Chest [id number] INDICATION: Post intubation ^[id number] ^[id number] DISCUSSION: Frontal view of the chest obtained at 1836 hours. HEART AND MEDIASTINUM: Stable cardiomegaly and vascular congestion. LINES: Endotracheal tube tip is poorly visualized due to underpenetration of the image. It appears to terminate approximately 2 cm above the von. LUNGS: Low lung volumes. Increasing posterior atelectasis. PLEURA: There is blunting of the lateral costophrenic angles. No pneumothorax. BONES AND SOFT TISSUES: No focal osseous lesion. The soft tissues are normal. IMPRESSION: Endotracheal tube tip is poorly visualized due to underpenetration of the image. Low lung volumes are posterior atelectasis. Small effusions cannot be excluded. Stable cardiomegaly and vascular congestion. Signed by: Dr. Margo Vasquez MD on 01/05/2020 6:45 PM
[2020-01-05] MEDS ORDERED: CALCIUM GLUCONATE 10% INJ 0.465 MEQ/ML VIAL ONE (18:58)
[2020-01-05] MEDS ORDERED: SODIUM CHLORIDE 0.9% 100 ML ONE (18:59)
[2020-01-05] MEDS ORDERED: INSULIN REGULAR, HUMAN 100 UNIT/1 ML 3ML VIAL IV ONE (19:00)
[2020-01-05] MEDS ORDERED: CALCIUM GLUCONATE 10% INJ 4.65 MEQ in SODIUM CHLORIDE 0.9% 50ML 50 ML IV ONE (19:00)
[2020-01-05] MEDS ORDERED: FUROSEMIDE INJ 10 MG/ML 4 ML VIAL IV ONE (19:15)
--- NOTE | 2020-01-05 19:17 | NUR ---
TRANSFER INITIATED TO [facility], SPOKE TO SOCO MIDDLETON
--- NOTE | 2020-01-05 19:55 | NUR ---
pt arrived via [facility] and got into er and got on er stretcher and when plan of care told to pt he got up and stood leaning on cart stated he was leaving and refusing to be seen. pt's family x 2, er charge, er md, mat machine tender and primary all begging pt to stay and be seen. pt was pale and dusky. after over 30 mins pt finally got back into er bed and agreed to be seen. pt placed on nc at 6 lpm after oxygen sat was 84% and went up to 93%. resp called per md order and placed on bipap, tolerating well. pt went to radiology and rapid called after pt aggitated and became combative and unresponsive on floor and dusky. pt onto stretcher and bagged, +pulse. pt immediately pinked up and moving about. pt intubated by er md with 8 ett tube 24 at lips and vent settings prbc18/500/60/+5; ngt and nascimento placed and restraints on bilaterally wrist. hob 45 degrees. vss. on propofol drip. report to [email or web address].
[2020-01-05] MEDS ORDERED: VECURONIUM BROMIDE FOR INJ 20 MG VIAL IV STA (20:03)
[2020-01-05] MEDS ORDERED: ETOMIDATE 2 MG/ML 10 ML INJ IV STA (20:03)
[2020-01-05] MEDS ORDERED: SUCCINYLCHOLINE CHLORIDE 20 MG/ML 10ML VIAL IV STA (20:03)
--- NOTE | 2020-01-05 20:06 | NUR ---
propofol drip 25 mg /kg/min on pump (based off 150kg wt)
[2020-01-05] MEDS ORDERED: PROPOFOL IV EMULSION 10 MG/ML 20 ML VIAL IV ONE (20:15)
[2020-01-05 20:23] LABS: CREATINE KINASE MB 3.7 ng/mL (0-5.0)
--- NOTE | 2020-01-05 20:30 | NUR ---
DR GUERRA AT BEDSIDE UPDATING FAMILY ON PLAN OF CARE AND TRANSFER. VERBALIZED UNDERSTANDING.
--- NOTE | 2020-01-06 00:41 | NUR ---
EMS HERE AT THIS TIME FOR TRANSPORT TO [facility].
[2020-01-06] MEDS ORDERED: PROPOFOL IV EMULSION 10MG/ML 100 ML ONE (01:08)
== END 2020-01-06 01:00 | disposition other institution (70) ==
LOC: ER 15:57
DX: J09.X1 Influenza due to identified novel influenza A virus with pneumonia (principal); I50.21 Acute systolic (congestive) heart failure; J96.01 Acute respiratory failure with hypoxia; J96.02 Acute respiratory failure with hypercapnia; N28.9 Disorder of kidney and ureter, unspecified; E87.5 Hyperkalemia
CPT/HCPCS: 31500; 36415; 36600; 51700; 71045; 80053; 82550; 82553; 82805; 83605; 83880; 84484; 85025; 85610; 85730; 87040; 87400; 93005; 94002; 94640; 94644; 94660; 96375; 96376; 99285; J0330; J0456; J0610; J0692; J1940; J2704 ×3; J7040; J7050; J7799